=== PATIENT | female | born 1980 | race Caucasian/White ===

== ENCOUNTER 2016-09-22 17:01 | Inpatient (IN) | payer OTHER ==
[2016-09-23] MEDS ORDERED: Dibucaine 1% 28.35 GM TUBE PR PRN (02:26)
[2016-09-23] MEDS ORDERED: Witch Hazel PAD* JAR TOPICAL PRN (02:26)
[2016-09-23] MEDS ORDERED: Acetaminophen TAB* 325 MG PO PRN (02:26)
[2016-09-23] MEDS ORDERED: Glycerin ADULT SUPP PR PRN (02:26)
[2016-09-23] MEDS ORDERED: Ibuprofen TAB* 600 MG ONE (02:45)
[2016-09-23] MEDS ORDERED: Simethicone CHEW TAB* 80 MG PO SCH (08:30)
[2016-09-23] MEDS: Ibuprofen TAB* 600 MG PO PRN ×3 (08:58→21:41)
[2016-09-23] MEDS: Docusate CAP* 100 MG PO SCH ×3 (08:58→21:41)
[2016-09-24 07:15] LABS: Hematocrit 37 % (35-47); Hemoglobin 12.5 g/dl (12.0-16.0); Mean Corpuscular HGB Conc 34 g/dl (31-36); Mean Corpuscular Hemoglobin 30 pg (27-31); Mean Corpuscular Volume 88 fL (80-97); Mean Platelet Volume 12 um3 (7.4-10.4); Red Blood Count 4.22 10^6/ul (4.0-5.4); Red Cell Distribution Width 15 % (10.5-15); White Blood Count 12.4 10^3/ul (3.5-10.8)
[2016-09-24] MEDS: Ibuprofen TAB* 600 MG PO PRN (07:36)
[2016-09-24 07:53] VITALS: BP 128/115
[2016-09-24] MEDS ORDERED: Ferrous Gluconate TAB* 324 MG TAB PO SCH (09:00)
== END 2016-09-24 12:54 | disposition home or self-care (01) | DRG 560 ==
LOC: MCHOBOUT 17:01 → MCHOB 09-23 01:23
PROVIDERS: ADMIT Midwife; ATTEND Midwife
PROC: 4A1HX4Z Monitoring of Products of Conception, Cardiac Electrical Activity, External Approach (ICD-10-PCS; principal; 2016-09-23)
PROC: 10E0XZZ Delivery of Products of Conception, External Approach (ICD-10-PCS; 2016-09-23)
DX: O62.3 Precipitate labor (principal); O71.89 Other specified obstetric trauma; Z37.0 Single live birth; Z3A.39 39 weeks gestation of pregnancy
CPT/HCPCS: 36415; 85025; A9270-GY